=== PATIENT | male | born 1945 | race Caucasian/White ===

== ENCOUNTER 2021-03-27 09:07 | Outpatient (CLI) | payer OTHER | END 2021-03-27 09:23 | disposition home or self-care (01) | LOC: TOM 09:07 | PROVIDERS: ATTEND Family Medicine Adult Medicine | DX: K57.90 Diverticulosis of intestine, part unspecified, without perforation or abscess without bleeding (principal); N20.0 Calculus of kidney; Z12.11 Encounter for screening for malignant neoplasm of colon ==